=== PATIENT | male | born 1960 | race Caucasian/White ===

== ENCOUNTER 2024-03-10 13:22 | Emergency (ER) | payer SELFPAY ==
[2024-03-10 13:32] VITALS: BP 148/93
--- NOTE | 2024-03-10 14:40 | ED.GENMED ---
History of Present Illness
General
Chief Complaint: Male Genito-Urinary Symptoms
Source: patient
Exam Limitations: none
Time Seen by Provider: 03/10/24 14:02
Nursing documentation reviewed up to this point in time: agreed with
History of Present Illness
History of Present Illness:
63-year-old male with no significant past medical history states he has not been able to void much since last evening. He denies fever or chills. He denies chest pain or SOB. He has had no problems moving his bowels.
Past History
Past History
ED Past Medical History: None
ED Past Surgical History: Orthopedic
Social History
Tobacco: Non-smoker
Alcohol: Occasional
Personal:
Living: with family
Employment: Employed
Review of Systems
Review of Systems
Allergies reviewed?: Yes
All Other Systems: ROS reviewed and negative except as documented in HPI and ROS
Constitutional: Denies fever or chills
Respiratory: Denies trouble breathing
Cardiac: Denies chest pain
ABD/GI: Denies abdominal pain, nausea, vomiting or diarrhea
: Reports difficulty voiding; Denies dysuria
Musculoskeletal: Reports no symptoms
Skin: Reports no symptoms
Neurological: Reports no symptoms
Phy Exam
Physical Exam
Physical Exam:
GENERAL: No acute distress. A&Ox3.
CONSTITUTIONAL: Afebrile.
EYES: Clear, conjunctivae normal
ENMT: moist mucus membranes, Pharynx nl
RESPIRATORY: Regular respirations, nonlabored, lungs clear.
CARDIOVASCULAR: Regular rate and rhythm, no murmurs, no rubs.
GI: Soft, distended, tender suprapubically, normal BS
MUSCULOSKELETAL: Moves with ease. Well perfused.
SKIN: Warm, dry, pink
PSYCH: Normal mood and affect. Well kept, interactive and appropriate
NEUROLOGIC: Awake, alert and oriented. No focal neurological deficits
Course
Orders/Labs/Results
Orders:
Orders
03/10/24 14:29
Lynch Placement- Treatment ONCE
Reason for insertion: Acute Retention
03/10/24 14:33
Complete Blood Count/With Diff Urgent
Comprehensive Metabolic Panel Urgent
03/10/24 14:39
Urinalysis Reflex To Culture Urgent
Date Specimen was Collected: 03/10/24
Time Specimen was Collected: 14:33
03/10/24 14:42
US Kidneys and US Bladder [US Renal With Bladder] Urgent
Comment:
Reason For Exam: acute urine retention
Abnormal Lab Results
03/10/24 03/10/24
14:33 14:39
RBC 4.17 L 10^6/uL
(4.70-6.10)
MCV 94.2 H fL
(80.0-94.0)
MCH 35.3 H pg
(27.0-31.0)
MCHC 37.4 H g/dL
(33.0-37.0)
Absolute Neuts (auto) 7.6 H 10^3/uL
(1.4-6.5)
Absolute Monos (auto) 0.8 H 10^3/uL
(0.1-0.6)
Neutrophils % 77.4 H %
(42.2-75.2)
Lymphocytes % 13.6 L %
(20.5-51.1)
Glucose 107 H mg/dl
(70-99)
Urine Ketones 1+ A
(Negative)
03/10/24 14:33
03/10/24 14:33
Vital Signs
Initial and Last Documented VS:
Initial Vital Signs
Temp Pulse Resp BP Pulse Ox
98.6 F 86 20 148/93 97
03/10/24 13:32 03/10/24 13:32 03/10/24 13:32 03/10/24 13:32 03/10/24 13:32
Last Documented Vital Signs
Temp Pulse Resp BP Pulse Ox
98.6 F 74 16 134/78 99
03/10/24 13:32 03/10/24 16:25 03/10/24 16:25 03/10/24 16:25 03/10/24 16:25
MDM/Problems Addressed
Differential Diagnosis Includes:
Acute urine retention, UTI, prostate hypertrophy
MDM/Problems Addressed:
63-year-old male with no significant past medical history states he has not been able to void much since last evening. He denies fever or chills. He denies chest pain or SOB. He has had no problems moving his bowels.
Afebrile, NAD
Abdomen distended, just voided about 10 cc
Postvoid bladder scan 1100 cc, clear aleks urine
CBC with no clinically significant abnormality
CMP normal
Ultrasound kidneys and bladder radiology report read: IMPRESSION:
1. Lynch catheter within the urinary bladder. Calculated urinary bladder volume 75 mL.
2. Right-sided nephrolithiasis without hydronephrosis.
Patient referred to urology for follow-up
Rx for Flomax sent to his pharmacy
*Critical Care Note
Total Time (30-74mins, 75-104mins- exclusive of procedures): Not Applicable
ED Attending Note
-
Portions of this chart may have been created with voice recognition software.� Occasional wrong word or��sound alike� substitutions may have occurred due to the inherent limitations of voice recognition software.
Discharge Plan
Departure
Patient Disposition: Home (Routine Discharge)
Date of Disposition: 03/10/24
Time of Disposition: 16:35
Patient with high blood pressure during this ER visit?: No
Condition: Good
Discharge Problem:
Acute urinary retention
Instructions: How to Care for Your Lynch Catheter, Male, Urinary Retention (DC)
Prescriptions:
New
tamsulosin [Flomax] 0.4 mg capsule
0.4 mg PO DAILY Qty: 14 0RF
Referrals:
NONE,* [Family Provider] -
Lucio Márquez MD [Active] - Next open appointment
Activity Restrictions/Additional Instructions:
As we discussed, call the urology office tomorrow morning and make next available appointment for acute urine retention.
You will have to keep the catheter in until then.
I sent a prescription to your pharmacy for Flomax, medication to take daily to relax the muscles of the bladder and ureters.
Interventions
Interventions:
*Risk Screen - Suicide Last Done: 03/10/24 13:32
*General Assessment Last Done: 03/10/24 13:32
*Neglect/Abuse Screening Last Done: 03/10/24 13:32
ED- Fall Risk Assessment Last Done: 03/10/24 16:50
*ED COVID-19 Vaccine History Last Done: 03/10/24 14:26
*Nursing Disposition Last Done: 03/10/24 16:50
ED-Male Genitourinary Assessment Last Done: 03/10/24 14:27
Discharge Date and Time
Discharge Date/Time: 03/10/24 17:06
Print Language: MALAYSIAN
[2024-03-10 14:42] VITALS: BP 146/84
[2024-03-10 14:42] LABS: % Basophils 0.4 % (0-2); % Eosinophils 0.4 % (0-6); % Immature Granulocytes 0.4 % (0-0.5); % Lymphocytes 13.6 % (20.5-51.1); % Monocytes 7.8 % (1.7-9.3); % Neutrophils 77.4 % (42.2-75.2); Absolute Lymphocytes 1.3 10^3/uL (1.2-3.4); Absolute Monocytes 0.8 10^3/uL (0.1-0.6); Absolute Neutrophils 7.6 10^3/uL (1.4-6.5); Hematocrit 39.3 % (39.0-52.0); Hemoglobin 14.7 g/dL (13.0-18.0); Mean Corp Hgb Conc. 37.4 g/dL (33.0-37.0); Mean Corpuscular Hgb 35.3 pg (27.0-31.0); Mean Corpuscular Volume 94.2 fL (80.0-94.0); Mean Platelet Volume 9.7 fL (7.4-10.4); Nucleated Red Blood Cells % 0 % (-); Platelet Count 257 10^3/uL (130-400); Red Blood Cell Count 4.17 10^6/uL (4.70-6.10); Red Cell Dist. Width 12.7 % (11.5-14.5); White Blood Cell Count 9.8 10^3/uL (4.8-10.8)
[2024-03-10 14:52] LABS: ALT (SGPT) 23 U/L (0-50); AST (SGOT) 28 U/L (17-59); Albumin 4.6 g/dl (3.5-5.0); Alkaline Phosphatase 83 U/L (38-126); Blood Urea Nitrogen 10 mg/dl (9-20); Calcium 9.1 mg/dl (8.4-10.2); Carbon Dioxide 25 mmol/L (22-30); Chloride 102 mmol/L (98-107); Glucose 107 mg/dl (70-99); Potassium 3.8 mmol/L (3.5-5.1); Sodium 137 mmol/L (135-145); Total Bilirubin 1.1 mg/dl (0.2-1.3); Total Protein 7.4 g/dl (6.3-8.2); eGFR > 60.00
[2024-03-10 15:39] LABS: Urine Albumin Negative (Neg - Trace); Urine Bilirubin Negative (Negative); Urine Character Clear (Clear); Urine Color Yellow; Urine Glucose Negative (Negative); Urine Ketone 1+ (Negative); Urine Leukocyte Negative (Negative); Urine Nitrite Negative (Negative); Urine Occult Blood Negative (Negative); Urine Specific Gravity 1.015 (<1.030); Urine Urobilinogen Negative (Neg - 1+)
[2024-03-10 16:25] VITALS: BP 134/78
== END 2024-03-10 17:06 | disposition home or self-care (01) ==
LOC: EMR 13:22
PROVIDERS: Registered Nurse; EMERGENCY PHYSICIAN Emergency Medicine
DX: R33.9 Retention of urine, unspecified (principal); R14.0 Abdominal distension (gaseous); N20.0 Calculus of kidney
CPT/HCPCS: 99284; 51798; 51702; 76770; 80053; 81003; 85025